=== PATIENT | female | born 1935 | race Caucasian/White ===

== ENCOUNTER 2022-02-19 17:38 | Inpatient (IN) | payer MEDICARE, OTHER ==
[~2022-02-19] VITALS: Ht 167.6 cm; Wt 54.9 kg
[2022-02-19 18:55] VITALS: BP 126/77
[2022-02-19] MEDS ORDERED: CYAN-51 PO (19:08)
[2022-02-19] MEDS ORDERED: DILT180C66 PO (19:08)
[2022-02-19] MEDS ORDERED: ASPI81TA31 PO (19:08)
[2022-02-19] MEDS ORDERED: ATOR20TA PO (19:08)
[2022-02-19] MEDS ORDERED: FAMO40TA71 PO (19:08)
[2022-02-19] MEDS ORDERED: COLE625T14 PO (19:08)
[2022-02-19] MEDS ORDERED: GUAI600T53 PO (19:08)
[2022-02-19] MEDS ORDERED: LACT1TAB12 PO (19:08)
[2022-02-19] MEDS ORDERED: SPIR25TA6 PO (19:08)
[2022-02-19] MEDS ORDERED: AMYL1CAP58 PO (19:08)
[2022-02-19] MEDS ORDERED: CHOL200013 PO (19:08)
[2022-02-19] MEDS ORDERED: CRAN400C PO (19:08)
[2022-02-19] MEDS ORDERED: TRAV5DRO EACHEYE (19:08)
[2022-02-19] MEDS ORDERED: MONT10TA33 PO (19:08)
[2022-02-19] MEDS ORDERED: PROP40TA7 PO (19:08)
[2022-02-19] MEDS ORDERED: PRAV20TA4 PO (20:35)
[2022-02-19] MEDS ORDERED: OMEP-99 PO (20:43)
[2022-02-19] MEDS ORDERED: ATORVASTATIN 20 MG TABLET PO SCH (21:00)
[2022-02-19] MEDS ORDERED: ATORVASTATIN 10 MG TABLET PO SCH (21:00)
[2022-02-19] MEDS: TRAVOPROST 0.004% EACHEYE SCH (21:00)
[2022-02-19] MEDS: MONTELUKAST SODIUM 10 MG TABLET PO SCH (21:07)
--- NOTE | 2022-02-19 21:37 | NUR ---
Patient admitted from [facility], status post exploratory Lap, midabdominal incision noted, patient refused to be assessed, dressing is intact, no drainage noted on dressing, dressing is clean and dry, patient is alert, oriented x4, no sob, resp even nonlabored ,skin warm and dry to touch, ambulatory with one person assist, noted with pitting edema to both lower ext +2 and to both feet +4, noted with multiple ecchymosis to both upper and lower ext. no acute distress noted at this time. Addendum: 02/19/22 at 2142 by REJI RAMOS RN, RN sacral area redness noted, applied foam dressing and educated patient on turning and repositioning, patient verbalized understanding of it. wound consult in place.
[2022-02-20 04:00] VITALS: BP 143/72
[2022-02-20] MEDS: PANTOPRAZOLE SODIUM 40 MG TABLET.DR PO SCH (06:20)
[2022-02-20 07:30] VITALS: BP 146/70
--- NOTE | 2022-02-20 08:00 | NUR ---
awake, alert and oriented, denies of pain, no distress noted, explained plan of care, abdominal incision with dsg- dry and intact, denies of pain, on room air- no distress noted, safety measures in place, needs attended
[2022-02-20] MEDS ORDERED: COLESEVELAM HCL 625 MG TABLET PO SCH ×2 (09:00)
[2022-02-20] MEDS: CHOLECALCIFEROL 1,000 UNIT TABLET PO SCH (10:04)
[2022-02-20] MEDS: ASPIRIN 81 MG TAB.CHEW PO SCH (10:04)
[2022-02-20] MEDS: PROPRANOLOL HCL 20 MG TABLET PO SCH ×2 (10:05→17:00)
[2022-02-20] MEDS: CYANOCOBALAMIN 1,000 MCG TABLET PO SCH (10:05)
[2022-02-20] MEDS: SPIRONOLACTONE 25 MG TABLET PO SCH (10:05)
[2022-02-20] MEDS: ACIDOPHILUS/BULGARICUS CHEW TAB PO SCH (10:05)
[2022-02-20] MEDS: DILTIAZEM HCL CD 180 MG CAP.SR.24H PO SCH (10:06)
[2022-02-20] MEDS: CREON 24000 UNIT PO SCH ×3 (10:08→17:49)
--- NOTE | 2022-02-20 12:48 | NUR ---
WOUND CARE CONSULT: PT EATING AT THIS TIME BUT ADMISSION PHOTOS INDICATE SACRAL INTACT DEP TISSUE INJURY PRESENT ON ADMISSION IN ADDITION TO LOWER LEG DISCOLORATION WITH EDEMA. WEEPING EDEMA NOTED TO FEET. RECOMMENDATIONS MADE FOR SKIN PROTECTION. DISCUSSED WITH NURSING STAFF. MD IN AGREEMENT WITH PLAN OF CARE.
[2022-02-20] MEDS ORDERED: REMEDY ESSENTIAL ZINC PASTE 113 GM TOP PRN (13:00)
--- NOTE | 2022-02-20 15:00 | NUR ---
seen by Farideh GONZALEZ oncology with orders, for MRI of abdomen with contrast tomorrow, AWA informed
--- NOTE | 2022-02-20 15:30 | NUR ---
states would take CT chest and venous duplex of le but not MRI- DIRECTOR [employer] oncologist informed
[2022-02-20 16:00] VITALS: BP 118/51
[2022-02-20 17:13] LABS: THYROID STIMULATING HORMONE 2.988 mIU/mL (0.358-3.740)
--- NOTE | 2022-02-20 18:24 | NUR ---
no distress noted, call light within reach, all needs attended and met, visitors at bedside
[2022-02-20 20:00] VITALS: BP 128/56
[2022-02-20] MEDS: MONTELUKAST SODIUM 10 MG TABLET PO SCH (21:13)
[2022-02-20] MEDS: REMEDY ESSENTIAL ZINC PASTE 113 GM TOP SCH (21:13)
[2022-02-20] MEDS: TRAVOPROST 0.004% EACHEYE SCH (21:14)
[2022-02-21 04:00] VITALS: BP 139/65
[2022-02-21] MEDS: PANTOPRAZOLE SODIUM 40 MG TABLET.DR PO SCH (06:19)
[2022-02-21 07:06] LABS: *IMMUNOGLOBULIN G, SERUM 844 mg/dL (586-1602); CARBOHYDRATE ANTIGEN, 19-9 10 U/mL (0-35); IMMUNOGLOBULIN M, SERUM 194 mg/dL (26-217)
[2022-02-21 07:30] VITALS: BP 140/65
--- NOTE | 2022-02-21 08:00 | NUR ---
awake alert and oriented, denies of pain, bilateral lower extremities still swollen and elevated on pillows, explained plan of care-verbalized understanding, needs attended and safety measures in place
[2022-02-21 08:06] LABS: ALBUMIN 2.3 g/dL (2.9-4.4); ALPHA-1-GLOBULIN 0.2 g/dL (0.0-0.4); ALPHA-2-GLOBULIN 0.5 g/dL (0.4-1.0); BETA GLOBULIN 0.5 g/dL (0.7-1.3); GAMMA GLOBULIN 0.9 g/dL (0.4-1.8); GLOBULIN, TOTAL 2.2 g/dL (2.2-3.9); M-SPIKE Not Observed g/dL (Not Observed)
[2022-02-21 08:09] LABS: MEAN CORPUSCULAR HEMOGLOBIN 29.8 uug (24.7-32.8); MEAN CORPUSCULAR VOLUME 89.1 fL (75.5-95.3); PLATELET COUNT (AUTO) 120 K/uL (179-408)
[2022-02-21] MEDS: CREON 24000 UNIT PO SCH ×3 (08:54→17:32)
[2022-02-21] MEDS: CYANOCOBALAMIN 1,000 MCG TABLET PO SCH (08:54)
[2022-02-21] MEDS: ACIDOPHILUS/BULGARICUS CHEW TAB PO SCH (08:54)
[2022-02-21] MEDS: DILTIAZEM HCL CD 180 MG CAP.SR.24H PO SCH (08:55)
[2022-02-21] MEDS: CHOLECALCIFEROL 1,000 UNIT TABLET PO SCH (08:55)
[2022-02-21] MEDS: SPIRONOLACTONE 25 MG TABLET PO SCH (08:56)
[2022-02-21] MEDS: PROPRANOLOL HCL 20 MG TABLET PO SCH ×2 (08:57→17:33)
[2022-02-21 08:58] LABS: CREATININE 0.8 mg/dL (0.6-1.3); MAGNESIUM 1.3 mg/dL (1.8-2.4); PHOSPHOROUS 2.8 mg/dL (2.5-4.9); POTASSIUM 3.5 mmol/L (3.5-5.1)
[2022-02-21] MEDS: ASPIRIN 81 MG TAB.CHEW PO SCH (08:59)
[2022-02-21] MEDS: REMEDY ESSENTIAL ZINC PASTE 113 GM TOP SCH ×2 (09:03→20:18)
[2022-02-21] MEDS ORDERED: MAGNESIUM OXIDE 400 MG TABLET PO ONE (11:00)
[2022-02-21] MEDS: LISINOPRIL 5 MG TABLET PO SCH ×2 (11:30→21:23)
--- NOTE | 2022-02-21 13:27 | NUR ---
INTERDISCIPLINARY TEAM CONFERENCE
[2022-02-21 16:00] VITALS: BP 135/68
[2022-02-21 20:00] VITALS: BP 143/67
[2022-02-21] MEDS: MONTELUKAST SODIUM 10 MG TABLET PO SCH (20:15)
[2022-02-21] MEDS: TRAVOPROST 0.004% EACHEYE SCH (20:20)
--- NOTE | 2022-02-22 00:48 | NUR ---
Patient received in bed, AAOX3, no sob, no c/o pain noted. call light with in easy reach.
[2022-02-22 04:00] VITALS: BP 166/74
[2022-02-22] MEDS: PANTOPRAZOLE SODIUM 40 MG TABLET.DR PO SCH (06:02)
[2022-02-22 08:00] VITALS: BP 150/82
[2022-02-22] MEDS: PROPRANOLOL HCL 20 MG TABLET PO SCH ×2 (08:19→16:51)
[2022-02-22] MEDS: DILTIAZEM HCL CD 180 MG CAP.SR.24H PO SCH (08:20)
[2022-02-22] MEDS: ASPIRIN 81 MG TAB.CHEW PO SCH (08:20)
[2022-02-22] MEDS: LISINOPRIL 5 MG TABLET PO SCH ×2 (08:20→20:30)
[2022-02-22] MEDS: SPIRONOLACTONE 25 MG TABLET PO SCH (08:20)
[2022-02-22] MEDS: ACIDOPHILUS/BULGARICUS CHEW TAB PO SCH (08:20)
[2022-02-22] MEDS: CYANOCOBALAMIN 1,000 MCG TABLET PO SCH (08:20)
[2022-02-22] MEDS: CHOLECALCIFEROL 1,000 UNIT TABLET PO SCH (08:20)
[2022-02-22] MEDS: CREON 24000 UNIT PO SCH ×3 (08:25→16:51)
[2022-02-22] MEDS: FERROUS SULFATE 325 MG TABEC PO SCH (08:25)
[2022-02-22] MEDS: REMEDY ESSENTIAL ZINC PASTE 113 GM TOP SCH ×2 (09:08→20:29)
[2022-02-22 12:27] VITALS: BP 116/59
--- NOTE | 2022-02-22 13:29 | NUR ---
INDIVIDUALIZED PLAN OF CARE
[2022-02-22] MEDS: ENSURE ENLIVE (VAN) 240 ML LIQUID PO SCH ×2 (14:15→16:51)
[2022-02-22] MEDS: MUPIROCIN 2% OINT 22 GM TUBE NS SCH ×2 (14:16→20:16)
[2022-02-22 17:23] LABS: *BILIRUBIN,URIN NEGATIVE (NEGATIVE); *BLOOD, URINE NEGATIVE (NEGATIVE); *CLARITY,URINE CLEAR (CLEAR); *COLOR,URINE LIGHT YELLOW (YELLOW); *KETONES,URINE NEGATIVE (NEGATIVE); *UROBILINOGEN,URINE 0.2 E.U./dl (NORMAL); LEUKOCYTE ESTERASE ,URINE TRACE (NEGATIVE); NITRITE, URINE NEGATIVE (NEGATIVE); PH,URINE 8.5 (5.0-8.0); UGLUCOSE NEGATIVE (NEGATIVE)
[2022-02-22 17:34] LABS: BACTERIA,URINE NONE SEEN /HPF (NONE SEEN); RBC,URINE NONE SEEN /HPF (0-3); SQUAMOUS EPITHELIAL CELL,UR FEW /HPF (NONE SEEN); WBC,URINE 0-3 /HPF (0-3)
[2022-02-22 20:00] VITALS: BP_SYST 115; BP_SYST 123; BP_DIAS 50; BP_DIAS 63
[2022-02-22] MEDS: TRAVOPROST 0.004% EACHEYE SCH (20:16)
[2022-02-22] MEDS: MONTELUKAST SODIUM 10 MG TABLET PO SCH (20:30)
--- NOTE | 2022-02-22 21:16 | NUR ---
Patient in bed at this time, awake, AAOX3, no sob, no c/o pain noted, call light with in easy reach,
[2022-02-23 04:00] VITALS: BP 110/65
[2022-02-23] MEDS: PANTOPRAZOLE SODIUM 40 MG TABLET.DR PO SCH (06:07)
[2022-02-23 07:00] LABS: HEMATOCRIT 30.1 % (31.2-41.9); MEAN CORPUSCULAR HEMOGLOBIN 30.4 uug (24.7-32.8); MEAN CORPUSCULAR VOLUME 89.6 fL (75.5-95.3); PLATELET COUNT (AUTO) 102 K/uL (179-408)
[2022-02-23 07:07] LABS: CREATININE 0.9 mg/dL (0.6-1.3); MAGNESIUM 1.3 mg/dL (1.8-2.4); PHOSPHOROUS 2.8 mg/dL (2.5-4.9); POTASSIUM 3.9 mmol/L (3.5-5.1)
[2022-02-23 07:45] VITALS: BP 144/59
[2022-02-23] MEDS ORDERED: MAGNESIUM SULFATE/D5W 100 ML IV SCH (08:00)
[2022-02-23] MEDS: CREON 24000 UNIT PO SCH ×3 (08:08→16:08)
[2022-02-23] MEDS: ACIDOPHILUS/BULGARICUS CHEW TAB PO SCH (08:09)
[2022-02-23] MEDS: CHOLECALCIFEROL 1,000 UNIT TABLET PO SCH (08:09)
[2022-02-23] MEDS: CYANOCOBALAMIN 1,000 MCG TABLET PO SCH (08:09)
[2022-02-23] MEDS: ENSURE ENLIVE (VAN) 240 ML LIQUID PO SCH ×3 (08:09→16:08)
[2022-02-23] MEDS: DILTIAZEM HCL CD 180 MG CAP.SR.24H PO SCH (08:09)
[2022-02-23] MEDS: LISINOPRIL 5 MG TABLET PO SCH ×2 (08:09→20:37)
[2022-02-23] MEDS: PROPRANOLOL HCL 20 MG TABLET PO SCH ×2 (08:09→16:07)
[2022-02-23] MEDS: SPIRONOLACTONE 25 MG TABLET PO SCH (08:09)
[2022-02-23] MEDS: ASPIRIN 81 MG TAB.CHEW PO SCH (08:09)
[2022-02-23] MEDS: FERROUS SULFATE 325 MG TABEC PO SCH (08:09)
[2022-02-23] MEDS ORDERED: MAGNESIUM OXIDE 400 MG TABLET PO SCH (08:30)
[2022-02-23] MEDS: REMEDY ESSENTIAL ZINC PASTE 113 GM TOP SCH ×2 (09:01→20:41)
[2022-02-23] MEDS: MAGNESIUM OXIDE 400 MG TABLET PO SCH ×2 (09:02→12:28)
[2022-02-23] MEDS: MUPIROCIN 2% OINT 22 GM TUBE NS SCH ×2 (09:02→20:48)
[2022-02-23 15:00] VITALS: BP 121/46
[2022-02-23] MEDS: MONTELUKAST SODIUM 10 MG TABLET PO SCH (20:37)
[2022-02-23 20:48] VITALS: BP 113/48
[2022-02-23] MEDS: TRAVOPROST 0.004% EACHEYE SCH (20:48)
[2022-02-24 04:42] VITALS: BP 123/56
[2022-02-24] MEDS: PANTOPRAZOLE SODIUM 40 MG TABLET.DR PO SCH (06:16)
[2022-02-24 08:26] VITALS: BP 146/62
[2022-02-24] MEDS: ASPIRIN 81 MG TAB.CHEW PO SCH (09:31)
[2022-02-24] MEDS: CREON 24000 UNIT PO SCH ×3 (09:31→17:09)
[2022-02-24] MEDS: ACIDOPHILUS/BULGARICUS CHEW TAB PO SCH (09:31)
[2022-02-24] MEDS: DILTIAZEM HCL CD 180 MG CAP.SR.24H PO SCH (09:32)
[2022-02-24] MEDS: CYANOCOBALAMIN 1,000 MCG TABLET PO SCH (09:32)
[2022-02-24] MEDS: CHOLECALCIFEROL 1,000 UNIT TABLET PO SCH (09:32)
[2022-02-24] MEDS: LISINOPRIL 5 MG TABLET PO SCH ×2 (09:49→20:42)
[2022-02-24] MEDS: SPIRONOLACTONE 25 MG TABLET PO SCH (09:49)
[2022-02-24] MEDS: PROPRANOLOL HCL 20 MG TABLET PO SCH ×2 (09:49→17:09)
[2022-02-24] MEDS: ENSURE ENLIVE (VAN) 240 ML LIQUID PO SCH ×3 (09:50→17:10)
[2022-02-24] MEDS: MUPIROCIN 2% OINT 22 GM TUBE NS SCH ×2 (09:50→20:22)
[2022-02-24] MEDS: FERROUS SULFATE 325 MG TABEC PO SCH (09:51)
[2022-02-24] MEDS: REMEDY ESSENTIAL ZINC PASTE 113 GM TOP SCH ×2 (09:51→20:23)
--- NOTE | 2022-02-24 10:00 | NUR ---
Patient alert/oX4, able verbalize her needs and follow directions. Scheduled medications administered as ordered with no ASE noted; incontinent of both, hygiene/care provided at routine intervals/PRN. Patient continues under rehab and able to actively participate in therapy. Fall precautions observed and assist as needed.
[2022-02-24 16:35] VITALS: BP 133/55
--- NOTE | 2022-02-24 18:35 | NUR ---
Patient in stable conditions and in bed, awake, denies pain. All needs anticipated and met. Routine rounds and frequent visual checks done.
[2022-02-24] MEDS: MONTELUKAST SODIUM 10 MG TABLET PO SCH (20:12)
[2022-02-24] MEDS: TRAVOPROST 0.004% EACHEYE SCH (20:27)
[2022-02-24 20:53] VITALS: BP 119/52
[2022-02-25 04:26] VITALS: BP 131/59
[2022-02-25] MEDS: PANTOPRAZOLE SODIUM 40 MG TABLET.DR PO SCH (06:17)
[2022-02-25 07:03] LABS: MEAN CORPUSCULAR HEMOGLOBIN 30.7 uug (24.7-32.8); MEAN CORPUSCULAR VOLUME 89.8 fL (75.5-95.3); PLATELET COUNT (AUTO) 119 K/uL (179-408)
[2022-02-25 07:51] LABS: BILIRUBIN,TOTAL 0.6 mg/dL (0.2-1.0); CREATININE 0.8 mg/dL (0.6-1.3); TOTAL PROTEIN, SERUM 5.4 g/dL (6.4-8.2)
[2022-02-25] MEDS: ACIDOPHILUS/BULGARICUS CHEW TAB PO SCH (08:36)
[2022-02-25] MEDS: CYANOCOBALAMIN 1,000 MCG TABLET PO SCH (08:36)
[2022-02-25] MEDS: FERROUS SULFATE 325 MG TABEC PO SCH (08:36)
[2022-02-25] MEDS: CREON 24000 UNIT PO SCH ×3 (08:36→17:26)
[2022-02-25] MEDS: SPIRONOLACTONE 25 MG TABLET PO SCH (08:37)
[2022-02-25] MEDS: LISINOPRIL 5 MG TABLET PO SCH ×2 (08:37→21:09)
[2022-02-25] MEDS: CHOLECALCIFEROL 1,000 UNIT TABLET PO SCH (08:37)
[2022-02-25] MEDS: ASPIRIN 81 MG TAB.CHEW PO SCH (08:37)
[2022-02-25] MEDS: ENSURE ENLIVE (VAN) 240 ML LIQUID PO SCH ×3 (08:38→17:26)
[2022-02-25] MEDS: DILTIAZEM HCL CD 180 MG CAP.SR.24H PO SCH (08:38)
[2022-02-25] MEDS: MUPIROCIN 2% OINT 22 GM TUBE NS SCH ×2 (08:39→20:38)
[2022-02-25] MEDS: REMEDY ESSENTIAL ZINC PASTE 113 GM TOP SCH ×2 (08:39→20:53)
[2022-02-25] MEDS: PROPRANOLOL HCL 20 MG TABLET PO SCH ×2 (08:40→17:27)
[2022-02-25 09:00] VITALS: BP 145/85
[2022-02-25 15:43] VITALS: BP 127/61
--- NOTE | 2022-02-25 18:29 | NUR ---
no events noted during shift
--- NOTE | 2022-02-25 19:06 | NUR ---
incision site is clean and dry, no acute distress noted
[2022-02-25 20:00] VITALS: BP 131/56
[2022-02-25] MEDS: TRAVOPROST 0.004% EACHEYE SCH (20:38)
[2022-02-25] MEDS: MONTELUKAST SODIUM 10 MG TABLET PO SCH (20:38)
--- NOTE | 2022-02-25 21:34 | NUR ---
Patient in bed at this time, AAOX3, no sob, no c/o pain noted, call light within easy reach,
[2022-02-26 04:00] VITALS: BP 129/55
[2022-02-26] MEDS: PANTOPRAZOLE SODIUM 40 MG TABLET.DR PO SCH (06:35)
[2022-02-26 08:00] VITALS: BP 145/85
[2022-02-26] MEDS: ASPIRIN 81 MG TAB.CHEW PO SCH (08:11)
[2022-02-26] MEDS: SPIRONOLACTONE 25 MG TABLET PO SCH (08:11)
[2022-02-26] MEDS: FERROUS SULFATE 325 MG TABEC PO SCH (08:11)
[2022-02-26] MEDS: LISINOPRIL 5 MG TABLET PO SCH ×2 (08:11→20:03)
[2022-02-26] MEDS: DILTIAZEM HCL CD 180 MG CAP.SR.24H PO SCH (08:11)
[2022-02-26] MEDS: CHOLECALCIFEROL 1,000 UNIT TABLET PO SCH (08:11)
[2022-02-26] MEDS: PROPRANOLOL HCL 20 MG TABLET PO SCH ×2 (08:11→16:28)
[2022-02-26] MEDS: ENSURE ENLIVE (VAN) 240 ML LIQUID PO SCH ×3 (08:11→16:28)
[2022-02-26] MEDS: ACIDOPHILUS/BULGARICUS CHEW TAB PO SCH (08:11)
[2022-02-26] MEDS: CREON 24000 UNIT PO SCH ×3 (08:11→16:28)
[2022-02-26] MEDS: CYANOCOBALAMIN 1,000 MCG TABLET PO SCH (08:11)
[2022-02-26] MEDS: REMEDY ESSENTIAL ZINC PASTE 113 GM TOP SCH ×2 (10:25→20:04)
[2022-02-26] MEDS: MUPIROCIN 2% OINT 22 GM TUBE NS SCH ×2 (10:25→20:04)
[2022-02-26 12:00] VITALS: BP 125/53
--- NOTE | 2022-02-26 12:49 | NUR ---
WOUND CARE CONSULT/FOLLOW UP: PT SEEN FOR ABDOMINAL INCISION (CLOSED) WITH SOME GINETTE, PRESENT ON ADMISSION. PT ALSO HAS DEEP TISSUE INJURY TO SACRUM (PRESENT ON ADMISSION) WHICH IS IN EVOLUTION. RECOMMENDATIONS MADE FOR SKIN PROTECTION AND WOUND CARE TREATMENT ORDERS UPDATED. DISCUSSED WITH NURSING STAFF. SURGICAL CONSULT CALLED TO DR MARCE COOLEY MD IN AGREEMENT WITH PLAN OF CARE.
[2022-02-26 16:12] VITALS: BP 134/65
[2022-02-26] MEDS: MONTELUKAST SODIUM 10 MG TABLET PO SCH (20:03)
[2022-02-26] MEDS: TRAVOPROST 0.004% EACHEYE SCH (20:04)
[2022-02-26 20:35] VITALS: BP 104/43
[2022-02-26] MEDS: AZITHROMYCIN 250 MG TABLET PO SCH (21:10)
[2022-02-27 04:39] VITALS: BP 127/55
[2022-02-27] MEDS: PANTOPRAZOLE SODIUM 40 MG TABLET.DR PO SCH (06:07)
[2022-02-27 07:43] VITALS: BP 135/50
[2022-02-27] MEDS: CREON 24000 UNIT PO SCH ×3 (08:21→16:30)
[2022-02-27] MEDS: CHOLECALCIFEROL 1,000 UNIT TABLET PO SCH (08:22)
[2022-02-27] MEDS: SPIRONOLACTONE 25 MG TABLET PO SCH (08:22)
[2022-02-27] MEDS: ASPIRIN 81 MG TAB.CHEW PO SCH (08:22)
[2022-02-27] MEDS: CYANOCOBALAMIN 1,000 MCG TABLET PO SCH (08:22)
[2022-02-27] MEDS: FERROUS SULFATE 325 MG TABEC PO SCH (08:22)
[2022-02-27] MEDS: ENSURE ENLIVE (VAN) 240 ML LIQUID PO SCH ×3 (08:23→16:13)
[2022-02-27] MEDS: DILTIAZEM HCL CD 180 MG CAP.SR.24H PO SCH (08:23)
[2022-02-27] MEDS: PROPRANOLOL HCL 20 MG TABLET PO SCH ×2 (08:23→16:30)
[2022-02-27] MEDS: ACIDOPHILUS/BULGARICUS CHEW TAB PO SCH (08:23)
[2022-02-27] MEDS: MUPIROCIN 2% OINT 22 GM TUBE NS SCH ×2 (08:24→21:09)
[2022-02-27] MEDS: REMEDY ESSENTIAL ZINC PASTE 113 GM TOP SCH ×2 (08:25→21:14)
[2022-02-27] MEDS: LISINOPRIL 5 MG TABLET PO SCH ×2 (08:26→21:05)
--- NOTE | 2022-02-27 14:35 | NUR ---
patient is alert, oriented x4, no sob, respirations are even nonlabored, skin warm and dry to touch, talked to patient about sputum collection, specimen container provided to patient and instructions given how to collect it, patient verbalize understanding of it, stated she is not coughing at all, will try, but not sure about it.
--- NOTE | 2022-02-27 18:28 | NUR ---
patient mid abdominal incision is examined by Lexy RN [employer], no drainage noted, no malodorous noted, incision is clean and dry, however not well approximated, no acute distress noted, teaching done to prevent further DTI complications on sacral area, patient is independent with positioning changes, recommended to lay on her side while in bed, sacral DTI no slough noted, no drainage noted, clean and dry, dressing applied, patient verbalized the understanding of turn and be on her sides while in bed.continue to monitor.
[2022-02-27 20:00] VITALS: BP 118/51
[2022-02-27] MEDS: TRAVOPROST 0.004% EACHEYE SCH (21:00)
[2022-02-27] MEDS: MONTELUKAST SODIUM 10 MG TABLET PO SCH (21:04)
[2022-02-28] MEDS: LOPERAMIDE HCL 2 MG CAPSULE PO PRN ×2 (00:10→05:56)
[2022-02-28] MEDS: ACETAMINOPHEN 325 MG TABLET PO PRN (01:37)
[2022-02-28 03:40] LABS: *OCCULT BLOOD STOOL NEGATIVE (NEGATIVE)
[2022-02-28] MEDS ORDERED: IV NS 1000 ML 1,000 ML IV ONE ×2 (06:00→12:15)
[2022-02-28] MEDS: PANTOPRAZOLE SODIUM 40 MG TABLET.DR PO SCH (06:17)
[2022-02-28] MEDS: ONDANSETRON 4 MG/2 ML VIAL IV PRN ×2 (06:18→12:31)
[2022-02-28 06:33] LABS: HEMATOCRIT 23.1 % (31.2-41.9); MEAN CORPUSCULAR HEMOGLOBIN 31.4 uug (24.7-32.8); MEAN CORPUSCULAR VOLUME 91.1 fL (75.5-95.3); PLATELET COUNT (AUTO) 117 K/uL (179-408)
[2022-02-28 06:42] LABS: CREATININE 0.9 mg/dL (0.6-1.3); POTASSIUM 3.6 mmol/L (3.5-5.1)
[2022-02-28 06:47] LABS: BILIRUBIN,DIRECT 0.4 mg/dL (0.0-0.2); BILIRUBIN,TOTAL 0.8 mg/dL (0.2-1.0); PHOSPHOROUS 2.7 mg/dL (2.5-4.9); TOTAL PROTEIN, SERUM 4.7 g/dL (6.4-8.2)
--- NOTE | 2022-02-28 06:54 | NUR ---
Pt had 10 bowel movements through out the night. Pt reported that she's dizzy and nauseous. Difficulty staying awake. BP 63/33. NS 1000 ml bolus, Zofran and Imodium given as ordered. Rechecked BP 120/67. Will endorse to incoming shift.
[2022-02-28 07:08] LABS: MAGNESIUM 0.9 mg/dL (1.8-2.4)
[2022-02-28] MEDS: CREON 24000 UNIT PO SCH ×3 (07:42→17:13)
[2022-02-28 07:44] VITALS: BP 101/41
[2022-02-28] MEDS: CHOLECALCIFEROL 1,000 UNIT TABLET PO SCH (08:37)
[2022-02-28] MEDS: CYANOCOBALAMIN 1,000 MCG TABLET PO SCH (08:37)
[2022-02-28] MEDS: FERROUS SULFATE 325 MG TABEC PO SCH (08:37)
[2022-02-28] MEDS: ACIDOPHILUS/BULGARICUS CHEW TAB PO SCH (08:38)
[2022-02-28] MEDS ORDERED: MAGNESIUM OXIDE 400 MG TABLET PO ONE (09:00)
[2022-02-28] MEDS: MAGNESIUM SULFATE/D5W 100 ML IV SCH ×4 (09:55→12:12)
[2022-02-28] MEDS: DILTIAZEM HCL CD 180 MG CAP.SR.24H PO SCH (10:07)
[2022-02-28] MEDS: MUPIROCIN 2% OINT 22 GM TUBE NS SCH ×2 (10:08→20:25)
[2022-02-28] MEDS: LISINOPRIL 5 MG TABLET PO SCH ×3 (10:09→20:40)
[2022-02-28] MEDS: ENSURE ENLIVE (VAN) 240 ML LIQUID PO SCH ×3 (10:09→17:14)
[2022-02-28] MEDS: REMEDY ESSENTIAL ZINC PASTE 113 GM TOP SCH ×2 (10:12→20:26)
--- NOTE | 2022-02-28 10:24 | NUR ---
0710- PER NOC ENDORSEMENT, PATIENT HAD MULTIPLE EPISODES OF DIARRHEA THROUGH OUT THE NIGHT AND LOW BP. UPON SHIFT EXCHANGE ROUNDS, PATIENT IN BED, AWAKE, ALERT AND ABLE TO VERBALIZE HER HER NEEDS. PATIENT DENIES ANY GI DISCOMFORT, N/V. ORAL FLUIDS ENCOURAGED TOLERATED. 0800- AWARE AND UPDATED ON PATIENT'S CURRENT/ABOVE CONDITION, PER DrRicarda TO GIVE A DOSE OF MAGNESIUM 800MG ORAL X1 (NOW), AND MAGNESIUM 400 MG HS. PER MD ALSO START IV MAG.SUL. D5W 100MLs/HR. PER Dr. ALLEN START IVF NS @ 100ML/HR X1 LITER, AND SCREEN FOR C-DIFF. 0900-IVF HYDRATION/MEDS INFUSING ORDERED. NO ASE NOTED. PATIENT TOLERATING WELL, NO C/O ANY DISCOMFORT. SCHEDULED BLOOD PRESSURE MEDICATIONS HELD DT LOW BP., PATIENT IS ALERT AND DENIES ANY LIGHTHEADEDNESS/DIZZINESS. PIPER BENÍTEZ.
[2022-02-28] MEDS: ARGININE/GLUTAMINE/CALCIUM BMB 1 EACH POWD.PACK PO SCH ×2 (11:32→17:14)
[2022-02-28 12:52] LABS: BAND % (MANUAL) 1 % (0-10); BASOPHILS % (MANUAL) 1 % (0-2); LYMPHOCYTES % (MANUAL) 15 % (20-40); MONOCYTES % (MANUAL) 12 % (2-10); NEUTROPHILS % (MANUAL) 71 % (42-75)
--- NOTE | 2022-02-28 12:59 | NUR ---
PATIENT CONTINUES ON IVF HYDRATION NS @ 100ML/HR, CONTINUOUS X1 LITER AND ON MAGNESIUM SULFATE 1G D5W TOLERATING WELL, IV INFUSING WELL WITH SITE INTACT. PATIENT DENIES ANY GI DISCOMFORT, NO N/V NOTED, JACKY. MEALS AND FLUIDS WELL. PENDING TO COLLECT STOOL SAMPLE TO Check stool C. difficile, PATIENT HASN'T HAD A BM AT THIS TIME. PENDING CT OF CHEST/ABD/PELVIS TO BE DONE ORDERED BY .
[2022-02-28] MEDS: METRONIDAZOLE 500 MG TABLET PO SCH ×2 (14:28→21:25)
[2022-02-28 14:37] LABS: *OCCULT BLOOD STOOL NEGATIVE (NEGATIVE)
[2022-02-28 14:55] VITALS: BP 113/56
--- NOTE | 2022-02-28 15:49 | NUR ---
INTERDISCIPLINARY TEAM CONFERENCE
[2022-02-28 17:47] LABS: IRON, SERUM 17 ug/dL (50-175)
[2022-02-28 18:00] LABS: FERRITIN 810 ng/mL (8-252)
--- NOTE | 2022-02-28 18:26 | NUR ---
3:45PM-SPOKE TO SY AT RADIOLOGY DEPT. INQUIRING ETA FOR CT OF CHEST/ABD/PELVIS, PER SY, SHORT ON TECH AND BUSY DOING A PERCUTANEOUS PROCEDURE, THE JOURNEY[employer] PIPE WELDER WILL DO PROCEDURE TODAY. 18:25-SPOKE TO ARIELA REGARDING ABOVE PROCEDURE NOT YET DONE, PER ARIELA THEY HAVE ONE PROCEDURE AT THE TIME WITH ANOTHER PATIENT AND MOST LIKELY WILL DO IT RIGHT AFTER., ENDORSED APPROPRIATELY TO RELIEVING LICENSED FOR PROPER FOLLOW UP. PATIENT CONTINUES ON IVF HYDRATION OF NS 0.9%^ @ 100ML/HR. JACKY. WELL, NO S/S OF FLUID OVERLOAD OR DEHYDRATION NOTED.
[2022-02-28 20:08] VITALS: BP 119/52
[2022-02-28] MEDS: TRAVOPROST 0.004% EACHEYE SCH (20:25)
[2022-02-28] MEDS: MONTELUKAST SODIUM 10 MG TABLET PO SCH (20:25)
[2022-02-28] MEDS: MAGNESIUM OXIDE 400 MG TABLET PO SCH (20:25)
[2022-02-28] MEDS: AZITHROMYCIN 250 MG TABLET PO SCH (20:29)
[2022-03-01 04:12] VITALS: BP 112/50
[2022-03-01] MEDS: METRONIDAZOLE 500 MG TABLET PO SCH ×3 (06:19→21:32)
[2022-03-01] MEDS: PANTOPRAZOLE SODIUM 40 MG TABLET.DR PO SCH (06:19)
[2022-03-01 07:22] LABS: HEMATOCRIT 26.3 % (31.2-41.9); MEAN CORPUSCULAR HEMOGLOBIN 31.8 uug (24.7-32.8); PLATELET COUNT (AUTO) 113 K/uL (179-408)
[2022-03-01 07:33] LABS: BILIRUBIN,DIRECT 0.3 mg/dL (0.0-0.2); BILIRUBIN,TOTAL 0.8 mg/dL (0.2-1.0); CREATININE 0.8 mg/dL (0.6-1.3); MAGNESIUM 1.8 mg/dL (1.8-2.4); PHOSPHOROUS 2.5 mg/dL (2.5-4.9); POTASSIUM 3.6 mmol/L (3.5-5.1); TOTAL PROTEIN, SERUM 5.3 g/dL (6.4-8.2)
[2022-03-01 07:43] VITALS: BP 125/55
[2022-03-01] MEDS: CREON 24000 UNIT PO SCH ×3 (09:04→17:17)
[2022-03-01] MEDS: CHOLECALCIFEROL 1,000 UNIT TABLET PO SCH (09:06)
[2022-03-01] MEDS: CYANOCOBALAMIN 1,000 MCG TABLET PO SCH (09:06)
[2022-03-01] MEDS: LISINOPRIL 5 MG TABLET PO SCH ×3 (09:09→20:45)
[2022-03-01] MEDS: ARGININE/GLUTAMINE/CALCIUM BMB 1 EACH POWD.PACK PO SCH ×2 (09:16→17:19)
[2022-03-01] MEDS: FERROUS SULFATE 325 MG TABEC PO SCH (09:16)
[2022-03-01] MEDS: REMEDY ESSENTIAL ZINC PASTE 113 GM TOP SCH ×2 (09:16→21:32)
[2022-03-01] MEDS: ACIDOPHILUS/BULGARICUS CHEW TAB PO SCH ×2 (09:16→21:32)
[2022-03-01] MEDS: DILTIAZEM HCL CD 180 MG CAP.SR.24H PO SCH (09:17)
[2022-03-01] MEDS: ENSURE ENLIVE (VAN) 240 ML LIQUID PO SCH ×3 (09:19→17:19)
[2022-03-01] MEDS: SOD FERRIC GLUC COMPLX/SUCROSE 125 MG in IV NORMAL SALINE 100 ML IV SCH (13:39)
[2022-03-01] MEDS ORDERED: BISACODYL 5 MG TABLET.DR PO ONE (14:00)
[2022-03-01 15:12] VITALS: BP 132/54
--- NOTE | 2022-03-01 18:31 | NUR ---
patient is alert x3,she have good appetite, had two Bowel movements today, I.V.given @2:00 pm for Iron, no complaints ,pt resting.
[2022-03-01 20:08] VITALS: BP 118/54
[2022-03-01] MEDS: MONTELUKAST SODIUM 10 MG TABLET PO SCH (20:33)
[2022-03-01] MEDS: MAGNESIUM OXIDE 400 MG TABLET PO SCH (20:33)
[2022-03-01] MEDS: HYDROCORTISONE RECTAL SUPP 25 MG EACH RC SCH (21:32)
[2022-03-01] MEDS: TRAVOPROST 0.004% EACHEYE SCH (21:38)
[2022-03-02 04:13] VITALS: BP 121/62
--- NOTE | 2022-03-02 06:01 | NUR ---
Slept intermittently, no noted acute distress. Denies chest pain. Needs assessed and attended to. Call light within easy reach.
[2022-03-02] MEDS: METRONIDAZOLE 500 MG TABLET PO SCH ×3 (06:09→21:52)
[2022-03-02] MEDS: PANTOPRAZOLE SODIUM 40 MG TABLET.DR PO SCH (06:09)
[2022-03-02 06:56] LABS: HEMATOCRIT 23.3 % (31.2-41.9); MEAN CORPUSCULAR HEMOGLOBIN 31.5 uug (24.7-32.8); PLATELET COUNT (AUTO) 110 K/uL (179-408)
[2022-03-02 07:18] LABS: BILIRUBIN,DIRECT 0.2 mg/dL (0.0-0.2); BILIRUBIN,TOTAL 0.6 mg/dL (0.2-1.0); CREATININE 0.9 mg/dL (0.6-1.3); MAGNESIUM 1.5 mg/dL (1.8-2.4); PHOSPHOROUS 2.3 mg/dL (2.5-4.9); POTASSIUM 3.8 mmol/L (3.5-5.1); TOTAL PROTEIN, SERUM 4.7 g/dL (6.4-8.2)
[2022-03-02 07:28] LABS: *BILIRUBIN,URIN NEGATIVE (NEGATIVE); *CLARITY,URINE CLEAR (CLEAR); *COLOR,URINE YELLOW (YELLOW); *KETONES,URINE NEGATIVE (NEGATIVE); *UROBILINOGEN,URINE 0.2 E.U./dl (NORMAL); LEUKOCYTE ESTERASE ,URINE TRACE (NEGATIVE); NITRITE, URINE POSITIVE (NEGATIVE); UGLUCOSE NEGATIVE (NEGATIVE)
[2022-03-02 07:36] VITALS: BP 101/47
[2022-03-02 07:47] LABS: *BLOOD, URINE TRACE (NEGATIVE)
[2022-03-02 08:30] LABS: BACTERIA,URINE MANY /HPF (NONE SEEN); SQUAMOUS EPITHELIAL CELL,UR MODERATE /HPF (NONE SEEN)
[2022-03-02] MEDS: DILTIAZEM HCL CD 180 MG CAP.SR.24H PO SCH (09:00)
[2022-03-02] MEDS: FERROUS SULFATE 325 MG TABEC PO SCH ×2 (09:00→09:26)
[2022-03-02 09:08] LABS: BAND % (MANUAL) 1 % (0-10); EOSINOPHILS % (MANUAL) 1 % (0-8); LYMPHOCYTES % (MANUAL) 21 % (20-40); MONOCYTES % (MANUAL) 13 % (2-10); NEUTROPHILS % (MANUAL) 64 % (42-75)
[2022-03-02] MEDS: CHOLECALCIFEROL 1,000 UNIT TABLET PO SCH (09:26)
[2022-03-02] MEDS: ACIDOPHILUS/BULGARICUS CHEW TAB PO SCH ×2 (09:26→21:52)
[2022-03-02] MEDS: CYANOCOBALAMIN 1,000 MCG TABLET PO SCH (09:26)
[2022-03-02] MEDS: HYDROCORTISONE RECTAL SUPP 25 MG EACH RC SCH ×2 (09:28→21:53)
[2022-03-02] MEDS: ENSURE ENLIVE (VAN) 240 ML LIQUID PO SCH ×3 (09:29→17:55)
[2022-03-02] MEDS: CREON 24000 UNIT PO SCH ×3 (09:36→17:59)
[2022-03-02] MEDS: ARGININE/GLUTAMINE/CALCIUM BMB 1 EACH POWD.PACK PO SCH ×2 (09:38→18:00)
[2022-03-02] MEDS: REMEDY ESSENTIAL ZINC PASTE 113 GM TOP SCH ×2 (09:46→21:53)
[2022-03-02] MEDS: MAGNESIUM SULFATE/D5W 100 ML IV SCH ×2 (10:00→11:00)
[2022-03-02] MEDS ORDERED: NEUTRA PHOS PACKET PO ONE (10:00)
[2022-03-02] MEDS ORDERED: MAGNESIUM OXIDE 400 MG TABLET PO ONE (14:00)
[2022-03-02] MEDS: SOD FERRIC GLUC COMPLX/SUCROSE 125 MG in IV NORMAL SALINE 100 ML IV SCH (14:21)
[2022-03-02] MEDS: ACETAMINOPHEN 325 MG TABLET PO PRN (14:39)
[2022-03-02 15:30] VITALS: BP 98/54
--- NOTE | 2022-03-02 19:10 | NUR ---
Patient received in bed awake. She is comfortable at this time. Denies pain when asked. No s/s of acute distress noted. She is breathing on room air. She was NPO today for CT scan. Able to ambulate with assist. She was able yo walk with PT. Held Diltiazem Hydrochloride and pt refuse to take Ferrous Sulfate. Magnesium 1mg Iv was denied, spoke with Dr. Barton who ended up switch Mag to pill formed. Orders place. Patient is resting comfortably.
[2022-03-02 20:45] VITALS: BP 96/46
[2022-03-02] MEDS: TRAVOPROST 0.004% EACHEYE SCH (21:00)
[2022-03-02] MEDS: MONTELUKAST SODIUM 10 MG TABLET PO SCH (21:52)
[2022-03-02] MEDS: MAGNESIUM OXIDE 400 MG TABLET PO SCH (21:53)
[2022-03-02] MEDS: AZITHROMYCIN 250 MG TABLET PO SCH (21:53)
--- NOTE | 2022-03-02 23:33 | NUR ---
Eye drop not given meds not available.
[2022-03-03 04:49] VITALS: BP 123/59
[2022-03-03] MEDS: PANTOPRAZOLE SODIUM 40 MG TABLET.DR PO SCH (06:00)
[2022-03-03] MEDS: METRONIDAZOLE 500 MG TABLET PO SCH ×3 (06:00→21:00)
[2022-03-03 07:02] LABS: HEMATOCRIT 23.8 % (31.2-41.9); MEAN CORPUSCULAR HEMOGLOBIN 30.8 uug (24.7-32.8); MEAN CORPUSCULAR VOLUME 91.4 fL (75.5-95.3); PLATELET COUNT (AUTO) 103 K/uL (179-408)
[2022-03-03 07:14] LABS: CREATININE 0.7 mg/dL (0.6-1.3); MAGNESIUM 1.6 mg/dL (1.8-2.4); PHOSPHOROUS 2.7 mg/dL (2.5-4.9); POTASSIUM 3.8 mmol/L (3.5-5.1)
[2022-03-03 07:27] VITALS: BP 108/64
[2022-03-03] MEDS: CREON 24000 UNIT PO SCH ×3 (08:44→16:45)
[2022-03-03] MEDS: DILTIAZEM HCL CD 180 MG CAP.SR.24H PO SCH (09:00)
[2022-03-03] MEDS ORDERED: MAGNESIUM SULFATE/D5W 100 ML IV SCH (09:00)
[2022-03-03] MEDS: ACIDOPHILUS/BULGARICUS CHEW TAB PO SCH ×2 (09:04→20:40)
[2022-03-03] MEDS: ENSURE ENLIVE (VAN) 240 ML LIQUID PO SCH ×3 (09:04→17:00)
[2022-03-03] MEDS: CHOLECALCIFEROL 1,000 UNIT TABLET PO SCH (09:04)
[2022-03-03] MEDS: CYANOCOBALAMIN 1,000 MCG TABLET PO SCH (09:04)
[2022-03-03] MEDS: FERROUS SULFATE 325 MG TABEC PO SCH (09:05)
[2022-03-03] MEDS: ARGININE/GLUTAMINE/CALCIUM BMB 1 EACH POWD.PACK PO SCH ×2 (09:06→17:27)
[2022-03-03] MEDS: REMEDY ESSENTIAL ZINC PASTE 113 GM TOP SCH ×2 (09:06→20:43)
--- NOTE | 2022-03-03 09:30 | NUR ---
refused iron pill this am
[2022-03-03] MEDS: HYDROCORTISONE RECTAL SUPP 25 MG EACH RC SCH ×2 (09:59→20:40)
--- NOTE | 2022-03-03 10:00 | NUR ---
informed sthat magnesium is low and needs iv magnesium- refused to have IV reinserted- came out on production supervisor off shift, Dr Edwards informed and- order changed to PO
[2022-03-03] MEDS ORDERED: MAGNESIUM OXIDE 400 MG TABLET PO ONE (10:07)
[2022-03-03] MEDS: SOD FERRIC GLUC COMPLX/SUCROSE 125 MG in IV NORMAL SALINE 100 ML IV SCH (14:00)
--- NOTE | 2022-03-03 14:00 | NUR ---
refused ferritin IV- no IV site- refused to be restarted, refused iron pill this am
[2022-03-03 15:07] VITALS: BP 108/54
[2022-03-03] MEDS: SHARK LIVER OIL/PETROLAT OINT 60 GM TUBE RC SCH (18:04)
--- NOTE | 2022-03-03 18:20 | NUR ---
no distress noted, all needs attended and met, sacral treatment done, call light within reach
[2022-03-03 20:23] VITALS: BP 117/58
[2022-03-03] MEDS: MAGNESIUM OXIDE 400 MG TABLET PO SCH (20:40)
[2022-03-03] MEDS: MONTELUKAST SODIUM 10 MG TABLET PO SCH (20:40)
[2022-03-03] MEDS: TRAVOPROST 0.004% EACHEYE SCH (20:42)
[2022-03-03] MEDS: PHENYLEPHRINE/SHARK LIVER/CCB 1 EACH SUPP.RECT RC SCH (20:42)
[2022-03-04 04:00] VITALS: BP 121/54
[2022-03-04] MEDS: PANTOPRAZOLE SODIUM 40 MG TABLET.DR PO SCH (06:14)
[2022-03-04] MEDS: METRONIDAZOLE 500 MG TABLET PO SCH ×2 (06:14→13:31)
--- NOTE | 2022-03-04 06:54 | NUR ---
no distress noted, midabdominal incision is dry , clean, intact, steri strips are intact. education reinforced for importance of turning and repositioning, patient verbalized understanding of it, since patient is independent with repositioning herself.
[2022-03-04] MEDS: CREON 24000 UNIT PO SCH ×3 (07:46→17:20)
[2022-03-04 07:58] VITALS: BP 157/70
[2022-03-04] MEDS: CHOLECALCIFEROL 1,000 UNIT TABLET PO SCH (08:57)
[2022-03-04] MEDS: FERROUS SULFATE 325 MG TABEC PO SCH (09:00)
[2022-03-04] MEDS: HYDROCORTISONE RECTAL SUPP 25 MG EACH RC SCH ×2 (09:25→21:49)
[2022-03-04] MEDS: DILTIAZEM HCL CD 180 MG CAP.SR.24H PO SCH (09:25)
[2022-03-04] MEDS: SHARK LIVER OIL/PETROLAT OINT 60 GM TUBE RC SCH ×2 (09:26→17:24)
[2022-03-04] MEDS: ARGININE/GLUTAMINE/CALCIUM BMB 1 EACH POWD.PACK PO SCH ×2 (09:26→17:24)
[2022-03-04] MEDS: ACIDOPHILUS/BULGARICUS CHEW TAB PO SCH ×2 (09:26→21:49)
[2022-03-04] MEDS: ENSURE ENLIVE (VAN) 240 ML LIQUID PO SCH ×3 (09:26→17:00)
[2022-03-04] MEDS: REMEDY ESSENTIAL ZINC PASTE 113 GM TOP SCH ×2 (09:26→21:50)
[2022-03-04] MEDS: CYANOCOBALAMIN 1,000 MCG TABLET PO SCH (09:26)
[2022-03-04] MEDS: LISINOPRIL 5 MG TABLET PO SCH ×2 (09:28→21:49)
[2022-03-04 14:20] VITALS: BP 110/50
[2022-03-04] MEDS ORDERED: CEFTRIAXONE 1 G in IV DEXTROSE 5% 50 ML IV SCH (17:00)
--- NOTE | 2022-03-04 17:00 | NUR ---
pt refused iron pill. pt refused to have iv access. rocephin not given. pharmacist notified. pharmacist convert iv rocephin to cephalexin 250mg po.
[2022-03-04] MEDS: CEphaleXIN 250 MG CAPSULE PO SCH ×2 (19:33→21:49)
[2022-03-04 20:01] VITALS: BP 112/67
[2022-03-04] MEDS: MONTELUKAST SODIUM 10 MG TABLET PO SCH (21:49)
[2022-03-04] MEDS: MAGNESIUM OXIDE 400 MG TABLET PO SCH (21:49)
[2022-03-04] MEDS: TRAVOPROST 0.004% EACHEYE SCH (21:49)
[2022-03-04] MEDS: PHENYLEPHRINE/SHARK LIVER/CCB 1 EACH SUPP.RECT RC SCH (21:50)
[2022-03-05 04:22] VITALS: BP 128/51
[2022-03-05] MEDS: PANTOPRAZOLE SODIUM 40 MG TABLET.DR PO SCH (06:20)
[2022-03-05 06:26] LABS: HEMATOCRIT 24.6 % (31.2-41.9); MEAN CORPUSCULAR HEMOGLOBIN 31.1 uug (24.7-32.8); MEAN CORPUSCULAR VOLUME 92.3 fL (75.5-95.3); PLATELET COUNT (AUTO) 116 K/uL (179-408)
[2022-03-05] MEDS: DILTIAZEM HCL CD 180 MG CAP.SR.24H PO SCH (09:00)
[2022-03-05] MEDS: LISINOPRIL 5 MG TABLET PO SCH (09:00)
[2022-03-05 09:02] VITALS: BP 122/55
[2022-03-05] MEDS: FERROUS SULFATE 325 MG TABEC PO SCH (09:28)
[2022-03-05] MEDS: CYANOCOBALAMIN 1,000 MCG TABLET PO SCH (09:28)
[2022-03-05] MEDS: CREON 24000 UNIT PO SCH ×3 (09:28→17:16)
[2022-03-05] MEDS: ACIDOPHILUS/BULGARICUS CHEW TAB PO SCH (09:28)
[2022-03-05] MEDS: CHOLECALCIFEROL 1,000 UNIT TABLET PO SCH (09:28)
[2022-03-05] MEDS: ARGININE/GLUTAMINE/CALCIUM BMB 1 EACH POWD.PACK PO SCH ×2 (09:29→16:25)
[2022-03-05] MEDS: HYDROCORTISONE RECTAL SUPP 25 MG EACH RC SCH (09:29)
[2022-03-05] MEDS: CEphaleXIN 250 MG CAPSULE PO SCH ×3 (09:29→16:23)
[2022-03-05] MEDS: ENSURE ENLIVE (VAN) 240 ML LIQUID PO SCH ×3 (09:30→16:24)
[2022-03-05] MEDS: REMEDY ESSENTIAL ZINC PASTE 113 GM TOP SCH (09:38)
[2022-03-05] MEDS: PHENYLEPHRINE/SHARK LIVER/CCB 1 EACH SUPP.RECT RC SCH (09:39)
[2022-03-05] MEDS: SHARK LIVER OIL/PETROLAT OINT 60 GM TUBE RC SCH ×2 (11:19→17:00)
[2022-03-05] MEDS ORDERED: SOD FERRIC GLUC COMPLX/SUCROSE 125 MG in IV NORMAL SALINE 100 ML IV ONE (16:00)
--- NOTE | 2022-03-05 16:37 | NUR ---
Recieve patient awake in hospital bed. She is alert and oriented x4, verbally responsive, made eye contact and can make her needs known. Breathing on room air. Denies pain. No s/s of acute distress noted. Patient is ambulatory with assistance, however she refused to walk with Pt only exercise done. Patient refused iron pill and she also refused to have iv access for Ferrlecit 125mg IV sodium chloride 0.9% 100ml. Doctor and pharmacist notified. @1700 patient will be discharge back home and son Navdeep will accompanied. Patient will be transport by ambulance.
== END 2022-03-05 17:45 | disposition home health service (06) | DRG 949 ==
PROVIDERS: ADMIT Physical Medicine & Rehabilitation Pain Medicine; ATTEND Physical Medicine & Rehabilitation Pain Medicine
DX: Z48.815 Encounter for surgical aftercare following surgery on the digestive system (principal); E43 Unspecified severe protein-calorie malnutrition; K63.1 Perforation of intestine (nontraumatic); K72.00 Acute and subacute hepatic failure without coma; D68.59 Other primary thrombophilia; N39.0 Urinary tract infection, site not specified; I31.3 Pericardial effusion (noninflammatory); J84.9 Interstitial pulmonary disease, unspecified; K86.1 Other chronic pancreatitis; D61.818 Other pancytopenia; E87.1 Hypo-osmolality and hyponatremia; R64 Cachexia; A31.0 Pulmonary mycobacterial infection; K63.89 Other specified diseases of intestine; K66.0 Peritoneal adhesions (postprocedural) (postinfection); D64.9 Anemia, unspecified; E78.5 Hyperlipidemia, unspecified; I27.20 Pulmonary hypertension, unspecified; I71.4 Abdominal aortic aneurysm, without rupture; K83.8 Other specified diseases of biliary tract; M19.90 Unspecified osteoarthritis, unspecified site; M81.0 Age-related osteoporosis without current pathological fracture; N20.0 Calculus of kidney; N28.1 Cyst of kidney, acquired; Z90.49 Acquired absence of other specified parts of digestive tract; Z85.118 Personal history of other malignant neoplasm of bronchus and lung; E61.1 Iron deficiency; E83.39 Other disorders of phosphorus metabolism; E83.42 Hypomagnesemia; E86.0 Dehydration; I10 Essential (primary) hypertension; E88.09 Other disorders of plasma-protein metabolism, not elsewhere classified; R53.1 Weakness; I08.0 Rheumatic disorders of both mitral and aortic valves; I48.0 Paroxysmal atrial fibrillation; I87.2 Venous insufficiency (chronic) (peripheral); N28.9 Disorder of kidney and ureter, unspecified; J47.9 Bronchiectasis, uncomplicated; K56.41 Fecal impaction; Z22.322 Carrier or suspected carrier of Methicillin resistant Staphylococcus aureus; K64.9 Unspecified hemorrhoids; N81.89 Other female genital prolapse; S31.000A Unspecified open wound of lower back and pelvis without penetration into retroperitoneum, initial encounter; X58.XXXA Exposure to other specified factors, initial encounter; Y92.89 Other specified places as the place of occurrence of the external cause; Z88.2 Allergy status to sulfonamides; Z88.5 Allergy status to narcotic agent; Z91.041 Radiographic dye allergy status; N99.3 Prolapse of vaginal vault after hysterectomy; Z90.411 Acquired partial absence of pancreas; Z92.3 Personal history of irradiation
CPT/HCPCS: 36415; 70030-TC; 71045; 71250; 76700; 82378; 82784; 83550; 83615; 83735; 84100; 84155; 84165; 84443; 85025; 86301; 86334; 87077; 87086; 93307; 97535-GO-CO; A4663; A6209; A6213; A9150; J0696; J2405; J2916; J3475; J7040; Q0144